=== PATIENT | male | born 1945 | race Caucasian/White ===

== ENCOUNTER → 2019-02-09 | Outpatient (CLI) | payer MEDICARE ==
[~2019-02-09] MED LIST: AMLO10 PO; CLIN300 PO; ESZO1 PO; HYDMOR4 PO; MOXI400 PO; OPANA PO; SUPPLEMENTS
[2019-02-09 19:49] LABS: Microalb/Creat Ratio UR, Rand 5.742 mg/g (0.000-30.000); Microalbumin, Random Urine 8.67 mg/L (0.000-20.000)
== END | disposition home or self-care (01) ==
LOC: LAB EV 14:05
PROVIDERS: Family Medicine
DX: I10 Essential (primary) hypertension (principal); E03.9 Hypothyroidism, unspecified; E29.1 Testicular hypofunction
CPT/HCPCS: 82043; 82570

== ENCOUNTER → 2021-02-25 | Outpatient (CLI) | payer MEDICARE | END | disposition home or self-care (01) | LOC: LAB SHORT 16:52 → LAB EV 16:52 | DX: J01.91 Acute recurrent sinusitis, unspecified (principal) | CPT/HCPCS: 87070 ==

== ENCOUNTER → 2021-04-11 | Outpatient (CLI) | payer MEDICARE ==
[2021-04-11 17:48] LABS: Microalb/Creat Ratio UR, Rand 8.009 mg/g (0.000-30.000); Microalbumin, Random Urine 18.1 mg/L (0.000-20.000)
== END | disposition home or self-care (01) ==
LOC: LAB SHORT 16:10 → LAB 16:10
PROVIDERS: Family Medicine
DX: I10 Essential (primary) hypertension (principal)
CPT/HCPCS: 82043; 82570

== ENCOUNTER → 2022-07-22 | Outpatient (CLI) | payer MEDICARE | END | disposition home or self-care (01) | LOC: PLD 08:13 → LAB SHORT 08:13 | DX: L57.0 Actinic keratosis (principal) | CPT/HCPCS: 88305 ==

== ENCOUNTER → 2023-01-21 | Outpatient (CLI) | payer MEDICARE ==
[~2023-01-21] MED LIST changes: +KAPSPARGO SPRIN50 MG
== END ==
LOC: LAB 08:58 → LAB SHORT 08:58
DX: J32.9 Chronic sinusitis, unspecified (principal)
CPT/HCPCS: 87070

== ENCOUNTER 2025-05-08 11:27 | Day surgery (SDC) | payer OTHER ==
[~2025-05-08] VITALS: Ht 175.3 cm; Wt 77.8 kg
[~2025-05-08 11:27] MED LIST changes: +Balanced Salt Epinephrine Irrigation Solution 500 mL IR SCH; +Moxifloxacin HCL 0.5 MG/0.1 ML 0.4MLSYR RIGHTEYE SCH; +Ondansetron 4 MG SoluTab MM PRN; +PHENYLEPHRINE\\TROPICAMIDE\\TETRACAINE OPHTHALMIC DILATING SOLN RIGHTEYE PRN; +Povidone-Iodine 450 DROP/30 ML Solution ONE; +Povidone-Iodine 450 DROP/30 ML Solution RIGHTEYE SCH; +Tetracaine HCl/Pf 0.5% Opth Soln 4 ml ONE
--- NOTE | 2025-05-08 12:30 | NUR ---
05/08/25 1230 Debbi Lboo VITALS AT 1228 BP: 148/71 P: 66 O2: 97% WITH 8 LITERS OF BLOW BY OXYGEN
[2025-05-08 12:42] VITALS: BP 145/78
== END 2025-05-08 12:58 | disposition home or self-care (01) ==
LOC: ORSCSDS 11:27
PROVIDERS: Student in an Organized Health Care Education/Training Program
PROC: 08RJ3JZ Replacement of Right Lens with Synthetic Substitute, Percutaneous Approach (ICD-10-PCS; principal; 2025-05-08 13:00)
DX: H25.811 Combined forms of age-related cataract, right eye (principal); Z96.1 Presence of intraocular lens; H35.30 Unspecified macular degeneration; Z87.891 Personal history of nicotine dependence; H04.123 Dry eye syndrome of bilateral lacrimal glands; H52.31 Anisometropia; Z79.899 Other long term (current) drug therapy; H35.89 Other specified retinal disorders
CPT/HCPCS: A9270; V2632